=== PATIENT | female | born 1945 | race Caucasian/White ===

== ENCOUNTER 2017-08-27 10:01 | Inpatient (IN) ==
--- NOTE | 2017-08-27 11:15 | Emergency Department Note ---
Disposition Clinical Impression: Lower gastrointestinal hemorrhage Disposition: Admitted As Inpatient Condition: Fair Referrals: Bharat Méndez DO [Primary Care Provider] - Forms: ED Satisfaction Letter GI Bleed HPI - General Chief complaint: ED GI Bleed Stated complaint: Rectal bleeding Time Seen by Provider: 08/27/17 10:05 Source: patient, EMS Mode of arrival: EMS Nursing Notes Reviewed: Yes Vital Signs Reviewed: Yes - History of Present Illness HPI Narrative: Ms. Smallwood is a 71 year old female who presented to ED with a complaint of rectal bleeding. She reports a large amount of bright red blood in the toilet bowl following her BM this morning. She states her eye sight is not great, but her states that it coated the toilet bowl. She recently had a colonoscopy on 08/23/17 which she had 3 polyps removed without complications. She has had 2 bowel movements since the colonoscopy which were a little loose, otherwise normal. She has hemorrhoids, but states she has never had a gross blood before. Denies any symptoms of abdominal pain, diarrhea, fevers, chills. She admits to intermittent consitpation. She takes a daily aspirin but no other blood thinners. Did have dialysis this morning for and had to stop 15 minutes early due to fatigue and lightheadedness. Also states that her vision had gone black but is normal now. She denies LOC. Pt Subjective Complaint: gross bloody stools Onset (ago): hour(s) Number of episodes: 1 Severity: none Improves with: nothing Worsens with: nothing Context: hemorrhoids Associated symptoms: Reports: none, weakness - Related Data Home Medications Medication Instructions Recorded Confirmed Aspirin [Lo-Dose Aspirin EC] 81 mg PO DAILY 08/23/17 08/27/17 Cinacalcet [Sensipar] 30 mg PO DAILY 08/23/17 08/27/17 Lanthanum Carbonate [Fosrenol] 1,000 mg PO TID 08/23/17 08/27/17 Loratadine [Claritin] 10 mg PO DAILY 08/23/17 08/27/17 Vit C/E/Zn/Coppr/Lutein/Zeaxan 1 cap PO DAILY 08/23/17 08/27/17 [Preservision Areds 2 Softgel] Allergies Allergy/AdvReac Type Severity Reaction Status Date / Time allopurinol AdvReac Headache Verified 08/23/17 07:26 clonidine AdvReac Swelling Verified 08/23/17 07:26 of Lip/Tongue/Throat colchicine AdvReac Headache Verified 08/23/17 07:26 Iodinated Contrast- Oral and AdvReac Weakness Verified 08/23/17 07:26 IV Dye levofloxacin [From Levaquin] AdvReac Muscle Pain Verified 08/23/17 07:26 Penicillins AdvReac Itching Verified 08/23/17 07:26 pravastatin AdvReac Muscle Pain Verified 08/23/17 07:26 Warfarin [From Coumadin] AdvReac See Verified 08/23/17 07:26 Comments All systems ED: reviewed and negative except as stated. Past Medical History - Past Medical History Medical history: Reports: cancer, hyperlipidemia, hypertension, renal disease, other Surgical history: Reports: non-contributory Psychiatric history: Reports: no psych history - Social History Smoking Status: Never smoker Smokeless Tobacco Status: No Alcohol use: Reports: none Drug use: Reports: none Physical Exam - General Limitations: no limitations - Head Head exam: atraumatic, normocephalic, normal inspection - Respiratory Respiratory exam: Present: normal lung sounds bilaterally - Cardiovascular Cardiovascular exam: Present: regular rate, normal rhythm, normal heart sounds - Abdominal Exam Abdominal exam: Present: soft, normal bowel sounds. Absent: tenderness, distention, guarding, rebound, rigidity - Rectal Exam Scanning Coordinator present during exam: Yes Rectal exam: Present: normal inspection, normal rectal tone, hemorrhoids Course Course Narrative: Pt had a bowel movement while in emergency department which demonstrated a large amount of blood. H/H and vitals have been stable. - Reevaluation(s) Reevaluation #1: Discussed admission with patient. She is agreeable at this time. Discussed with GI bleed special education math teacher, Dr. Patricio. Also notified aviation safety equipment technician, Dr. Garcia. Time: 14:55 Vital Signs Temperature 0 F L 08/27/17 11:43 Pulse Rate 70 08/27/17 11:43 Respiratory Rate 19 08/27/17 11:43 Blood Pressure 115/93 08/27/17 11:43 O2 Sat by Pulse Oximetry 94 08/27/17 11:43 Temperature 0 F L 08/27/17 11:43 Pulse Rate 75 08/27/17 14:28 Respiratory Rate 17 08/27/17 14:28 Blood Pressure 109/68 08/27/17 14:28 O2 Sat by Pulse Oximetry 97 08/27/17 14:28 Oxygen Delivery Oxygen Delivery Room Air GI Bleed - MDM Narrative Medical decision making narrative: Pt evaluated and demonstrates signs and symptoms of lower GI hemorrhage following colonoscopy last week. 2 episodes of gross bloody bowel movements today. Admission discussed with patient and she is agreeable. Discussed with hospitalist, Dr. Conner and he will accept the patient for admission. order caller endoscopist and Dr. Garcia. H/H stable and Vitals stable. - Differential Diagnosis Likely: Lower gastrointestinal hemorrhage - Lab Data Result diagrams: 08/27/17 13:13 08/27/17 13:13 Lab Results 08/27/17 08/27/17 08/27/17 Range/Units 13:13 13:13 13:13 WBC 10.5 (4.3-11.1) K/mcL RBC 3.65 L (3.82-4.97) M/mcL Hgb 10.9 L (11.5-15.4) g/dL Hct 33.7 L (35.3-44.9) % MCV 92.3 (83.0-100.0) fL MCH 29.9 (28.0-33.3) pg MCHC 32.3 (31.6-35.5) g/dL RDW 13.5 (11.5-14.5) % Plt Count 179 (140-400) K/mcL MPV 10.4 (9.4-12.4) fL Immature Gran % 0.4 (0-4) % Seg Neutrophils % 73.2 % Lymphocytes % 20.8 % Monocytes % 4.3 % Eosinophils % 0.9 % Basophils % 0.4 % Neutrophils # 7.7 (1.6-8.9) K/mcL Lymphocytes # 2.2 (0.6-4.6) K/mcL Monocytes # 0.5 (0.0-1.3) K/mcL Eosinophils # 0.1 (0.0-0.6) K/mcL Basophils # 0.0 (0.0-0.2) K/mcL PT 11.2 (9.4-12.1) Seconds INR 1.0 APTT 28.4 (26.0-36.0) Seconds Sodium 139 (136-145) mEq/L Potassium 3.8 (3.5-5.1) mEq/L Chloride 99 (98-107) mEq/L Carbon Dioxide 27 (23-29) mEq/L BUN 22 (8-23) mg/dL Creatinine 4.47 H (0.60-1.20) mg/dL Est GFR ( Amer) 12 L (> 60) Est GFR (Non-Af Amer) 10 L (> 60) BUN/Creatinine Ratio 5 L (6-26) Glucose 95 (70-105) mg/dL Calculated Osmolality 291 (280-300) Calcium 8.7 (8.6-10.3) mg/dL Troponin I (< 0.04) ng/mL Blood Type Antibody Screen 08/27/17 08/27/17 Range/Units 13:13 13:13 WBC (4.3-11.1) K/mcL RBC (3.82-4.97) M/mcL Hgb (11.5-15.4) g/dL Hct (35.3-44.9) % MCV (83.0-100.0) fL MCH (28.0-33.3) pg MCHC (31.6-35.5) g/dL RDW (11.5-14.5) % Plt Count (140-400) K/mcL MPV (9.4-12.4) fL Immature Gran % (0-4) % Seg Neutrophils % % Lymphocytes % % Monocytes % % Eosinophils % % Basophils % % Neutrophils # (1.6-8.9) K/mcL Lymphocytes # (0.6-4.6) K/mcL Monocytes # (0.0-1.3) K/mcL Eosinophils # (0.0-0.6) K/mcL Basophils # (0.0-0.2) K/mcL PT (9.4-12.1) Seconds INR APTT (26.0-36.0) Seconds Sodium (136-145) mEq/L Potassium (3.5-5.1) mEq/L Chloride (98-107) mEq/L Carbon Dioxide (23-29) mEq/L BUN (8-23) mg/dL Creatinine (0.60-1.20) mg/dL Est GFR ( Amer) (> 60) Est GFR (Non-Af Amer) (> 60) BUN/Creatinine Ratio (6-26) Glucose (70-105) mg/dL Calculated Osmolality (280-300) Calcium (8.6-10.3) mg/dL Troponin I 0.03 (< 0.04) ng/mL Blood Type O POSITIVE Antibody Screen NEGATIVE - EKG Data EKG shows normal: sinus rhythm Rate: normal Rhythm: NSR [place]/QRS: left axis deviation Voltage: decreased voltage throughout When compared to previous EKG there are: no significant changes Attestation Statement - Attestation Attestation: I, Luis Lopez DO, examined this patient [id number] and my medical decision-making was reviewed with Enoc An PGY-1, Resident Physician. I agree with the documented findings, disposition and treatment plan as described except to the extent set forth below. Please see my progress notes for details. 71-year-old female presents to emergency room with acute onset of lower gastrointestinal bleed. Patient came home from dialysis this morning and felt pressure in her lower abdomen. Shortly afterwards she had a large bowel movement. Bowel movement consisted of blood and dark colored mucus. Patient did not have any other symptoms prior to that except for some mild hypotension. She does typically get hypotensive after her dialysis. Patient denies any fevers or chills nausea vomiting chest pain, shortness of breath. Patient presented by EMS in no apparent distress. Hemoccult testing will be completed on a CBC chemistry screening labs. Patient does not appear to be a specific distress. Simple fluid bolus will be given with IV accesses obtained. Patient is a right chest wall port will be axis within the glottis but not going off typically. The patient does not have the ability to have labs drawn we will potentially femoral sticker for evaluation. Patient is otherwise medically stable describing no other complaints or symptoms. See detailed documentation of physical exam, medical intervention, medical decision-making and disposition and the resident physician's note 1500 Patient found to have gross blood in her stool this time. Hemoglobin appears to be stable. Secondary to the GI bleed as well as the dialysis history patient will be admitted for symptomatic control. Vital signs otherwise unremarkable and stable at this point. Patient will be admitted for definitive management. Gastroenterology as well as the aviation safety equipment technician were contacted.
[2017-08-27 13:23] LABS: Basophils % 0.4 %; Eosinophils # 0.1 K/mcL (0.0-0.6); Eosinophils % 0.9 %; Hematocrit 33.7 % (35.3-44.9); Hemoglobin 10.9 g/dL (11.5-15.4); Immature Granulocytes % 0.4 % (0-4); Lymphocytes # 2.2 K/mcL (0.6-4.6); Lymphocytes % 20.8 %; Mean Corpuscular HGB Conc 32.3 g/dL (31.6-35.5); Mean Corpuscular Hemoglobin 29.9 pg (28.0-33.3); Mean Corpuscular Volume 92.3 fL (83.0-100.0); Mean Platelet Volume 10.4 fL (9.4-12.4); Monocytes # 0.5 K/mcL (0.0-1.3); Monocytes % 4.3 %; Neutrophils # 7.7 K/mcL (1.6-8.9); Platelet Count 179 K/mcL (140-400); Red Blood Count 3.65 M/mcL (3.82-4.97); Red Cell Distribution Width 13.5 % (11.5-14.5); Segmented Neutrophils % 73.2 %
[2017-08-27 13:31] LABS: Prothrombin Time 11.2 Seconds (9.4-12.1)
[2017-08-27 13:33] LABS: Activated Partial Thrombo Time 28.4 Seconds (26.0-36.0)
[2017-08-27 13:43] LABS: Calcium 8.7 mg/dL (8.6-10.3); Potassium 3.8 mEq/L (3.5-5.1)
[2017-08-27] MEDS ORDERED: Pantoprazole 80 MG in Water for inj. (sterile) 10 ML IVP ONE (14:50)
[2017-08-27] MEDS ORDERED: WATER FOR INJ IVP ONE (15:15)
[2017-08-27] MEDS ORDERED: PANTOPRAZOLE IVP ONE (15:15)
--- NOTE | 2017-08-27 15:48 | General Surgery Consult Note ---
<ChristopherjessyLiz cruz H - Last Filed: 08/27/17 15:46> Date of Encounter: 08/27/17 Time of Encounter: 15:47 Assessment and Plan (2) HLD (hyperlipidemia) Current Visit: Yes Status: Acute Patient with 1 day history of BRBPR with recent colonic polypectomy 5 days ago. Patient with non-thrombosed external rectal hemorrhoids. -colonscopy on 08/23/2017- three 6-15 mm polyps in sigmoid and ascending colon removed with hot snare. Diverticulosis in the sigmoid and descending colon. -Patients H&P c/w with polypectomy vs external hemorrhoids. During PE, no active bleeding visualized, only dried blood. -Hemoglobin 10.9, which is similar to Hgb during previous hospital stays. -Will follow serial hemoglobins. -Serial abdominal exams. -Agree with PPI therapy. -Will continue to follow along with medicine/primary team. History of Present Illness Consult date: 08/27/17 Reason for consult: other (GI bleed) Requesting physician: Navarro An History of present illness: Ms. Smallwood is a 71 yo female with PMHx cancer, HLD, HTN, chronic kidney disease on dialysis who presents to [facility] on 08/27/2017 with complaints of rectal bleeding. Per patient, she recently underwent colonoscopy and polypectomy on 08-23-2016 at which time she had 3 6 to 15 mm polyps in the sigmoid and ascending colon removed with hot snare. Diverticulosis was also noted in the sigmoid and descending colon. Patient states she has not been having any rectal bleeding since the procedure or any abdominal discomfort. Today, she noticed bright red blood while wiping. She states there was stool mixed in with her bowel movement. She denies any passage of clots, however, she quantifies the amount of bloody BM as more than a smear and covering the toilet paper. She reports mild tenderness in the umbilical region on her abdomen. She also reports lightheadness when going from sitting to standing. She denies chest pain , shortness of breath, diaphoresis, dysuria, or hematuria. She has had a hysterectomy and denies vaginal discharge or bleeding. She denies diarrhea, melena, or hematemesis. She denies nausea or vomitting. She denies fever or generalized weakness. Past Med Surg Social Fam HX - Past Medical History Attestation: Yes The following information was validated with the patient. Source: patient, old records reviewed Medical history: cancer, hyperlipidemia, hypertension, renal disease, other ( rheumatoid arthritis) Psychiatric history: no psych history - Past Surgical History Surgical History: non-contributory - Social History Smoking Status: Never smoker Smokeless Tobacco Status: No Alcohol use: none Drug use: none Medications and Allergies Aspirin [Lo-Dose Aspirin EC] 81 mg PO DAILY 08/23/17 [History] Cinacalcet [Sensipar] 30 mg PO DAILY 08/23/17 [History] Lanthanum Carbonate [Fosrenol] 1,000 mg PO TID 08/23/17 [History] Loratadine [Claritin] 10 mg PO DAILY 08/23/17 [History] Vit C/E/Zn/Coppr/Lutein/Zeaxan [Preservision Areds 2 Softgel] 1 cap PO DAILY 03/02 [History] 3 Allergy/AdvReac Type Severity Reaction Status Date / Time allopurinol AdvReac Headache Verified 08/23/17 07:26 clonidine AdvReac Swelling Verified 08/23/17 07:26 of Lip/Tongue/Throat colchicine AdvReac Headache Verified 08/23/17 07:26 Iodinated Contrast- Oral and AdvReac Weakness Verified 08/23/17 07:26 IV Dye levofloxacin [From Levaquin] AdvReac Muscle Pain Verified 08/23/17 07:26 Penicillins AdvReac Itching Verified 08/23/17 07:26 pravastatin AdvReac Muscle Pain Verified 08/23/17 07:26 Warfarin [From Coumadin] AdvReac See Verified 08/23/17 07:26 Comments Review of Systems All systems PM: A 10-system review of systems was performed and is negative for pertinent findings except as documented above in the HPI. - Constitutional no daytime sleepiness, no fever(s), no headache(s), no lethargy - Cardiovascular lightheadedness, no chest pain, no dyspnea on exertion, no edema, no irregular heart rhythm, no pedal edema - Respiratory no cough, no dyspnea, no wheezing, no excessive phlegm production - Gastrointestinal abdominal pain, hematochezia, no coffee ground emesis, no constipation, no cramping, no heartburn, no hematemesis, no loose stools, no melena, no vomiting - Genitourinary Menstruation: post hysterectomy - Musculoskeletal deformity (bilateral lower extremity deformities of both feet. c/w RA) - Neurological no numbness, no paresthesias, no syncope General Surgery Exam Initial Vital Signs Temp Pulse Resp BP Pulse Ox 0 F L 70 19 115/93 94 08/27/17 11:43 08/27/17 11:43 08/27/17 11:43 08/27/17 11:43 08/27/17 11:43 - General physical appearance well developed, well nourished, no distress, no pain, chronically ill - Eyes PERRL, normal ocular movement - ENT dry mucosa, atraumatic, normocephalic - Respiratory normal expansion, normal respiratory effort, clear to percussion, clear to auscultation - Cardiovascular Cardiovascular exam: Present: RRR, no murmurs/rubs/gallops - Abdomen Abdomen general surgery: Present: bowel sounds present, soft, non tender (Two well healed scars present. One midline extending between umbilicus and pubis. Other scar located over the RUQ in a crescent shape. ) Hernia: Present: none - Genitourinary Present: normal external genitalia - Rectum Rectum: Present: no tenderness, no masses, no bleeding (dried blood visible), other (hemorrhoids present on the rectum, not thrombosed.) Hemorrhoids: Present: External. Absent: Thrombosed - Integumentary Integumentary general surgery: Present: warm and dry. Absent: diaphoresis - Neurologic Present: normal coordination, normal sensation - Psychiatric Psychiatric general surgery: Present: A&Ox3, appropriate, speech is normal, memory intact Exam Initial Vital Signs Temp Pulse Resp BP Pulse Ox 0 F L 70 19 115/93 94 08/27/17 11:43 08/27/17 11:43 08/27/17 11:43 08/27/17 11:43 08/27/17 11:43 Results - Labs 08/27/17 13:13 08/27/17 13:13 Abnormal lab results RBC 3.65 M/mcL (3.82-4.97) L 08/27/17 13:13 Hgb 10.9 g/dL (11.5-15.4) L 08/27/17 13:13 Hct 33.7 % (35.3-44.9) L 08/27/17 13:13 Creatinine 4.47 mg/dL (0.60-1.20) H 08/27/17 13:13 Est GFR ( Amer) 12 (> 60) L 08/27/17 13:13 Est GFR (Non-Af Amer) 10 (> 60) L 08/27/17 13:13 BUN/Creatinine Ratio 5 (6-26) L 08/27/17 13:13 Diabetes panel 08/27/17 Range/Units 13:13 Sodium 139 (136-145) mEq/L Potassium 3.8 (3.5-5.1) mEq/L Chloride 99 (98-107) mEq/L Carbon Dioxide 27 (23-29) mEq/L BUN 22 (8-23) mg/dL Creatinine 4.47 H (0.60-1.20) mg/dL Glucose 95 (70-105) mg/dL Calcium 8.7 (8.6-10.3) mg/dL Calcium panel 08/27/17 Range/Units 13:13 Calcium 8.7 (8.6-10.3) mg/dL Pituitary panel 08/27/17 Range/Units 13:13 Sodium 139 (136-145) mEq/L Potassium 3.8 (3.5-5.1) mEq/L Chloride 99 (98-107) mEq/L Carbon Dioxide 27 (23-29) mEq/L BUN 22 (8-23) mg/dL Creatinine 4.47 H (0.60-1.20) mg/dL Glucose 95 (70-105) mg/dL Calcium 8.7 (8.6-10.3) mg/dL Adrenal panel 08/27/17 Range/Units 13:13 Sodium 139 (136-145) mEq/L Potassium 3.8 (3.5-5.1) mEq/L Chloride 99 (98-107) mEq/L Carbon Dioxide 27 (23-29) mEq/L BUN 22 (8-23) mg/dL Creatinine 4.47 H (0.60-1.20) mg/dL Glucose 95 (70-105) mg/dL Calcium 8.7 (8.6-10.3) mg/dL All other labs normal. Consult Discharge Plan - Plan Referrals: Bharat Méndez, [Primary Care Provider] - <Ajay Patricio - Last Filed: 08/28/17 14:27> Date of Encounter: 08/27/17 Review of Systems All systems PM: A 10-system review of systems was performed and is negative for pertinent findings except as documented above in the HPI. General Surgery Exam Initial Vital Signs Temp Pulse Resp BP Pulse Ox 0 F L 70 19 115/93 94 08/27/17 11:43 08/27/17 11:43 08/27/17 11:43 08/27/17 11:43 08/27/17 11:43 Exam Initial Vital Signs Temp Pulse Resp BP Pulse Ox 0 F L 70 19 115/93 94 08/27/17 11:43 08/27/17 11:43 08/27/17 11:43 08/27/17 11:43 08/27/17 11:43 Results - Labs 08/28/17 10:56 08/28/17 05:17 Abnormal lab results RBC 3.14 M/mcL (3.82-4.97) L 08/28/17 07:10 Hgb 10.4 g/dL (11.5-15.4) L 08/28/17 10:56 Hct 31.9 % (35.3-44.9) L 08/28/17 10:56 BUN 33 mg/dL (8-23) H 08/28/17 05:17 Creatinine 5.90 mg/dL (0.60-1.20) H 08/28/17 05:17 Est GFR ( Amer) 9 (> 60) L 08/28/17 05:17 Est GFR (Non-Af Amer) 7 (> 60) L 08/28/17 05:17 Calcium 8.3 mg/dL (8.6-10.3) L 08/28/17 05:17 Diabetes panel 08/28/17 Range/Units 05:17 Sodium 140 (136-145) mEq/L Potassium 4.1 (3.5-5.1) mEq/L Chloride 102 (98-107) mEq/L Carbon Dioxide 24 (23-29) mEq/L BUN 33 H (8-23) mg/dL Creatinine 5.90 H (0.60-1.20) mg/dL Glucose 79 (70-105) mg/dL Calcium 8.3 L (8.6-10.3) mg/dL Calcium panel 08/28/17 Range/Units 05:17 Calcium 8.3 L (8.6-10.3) mg/dL Pituitary panel 08/28/17 Range/Units 05:17 Sodium 140 (136-145) mEq/L Potassium 4.1 (3.5-5.1) mEq/L Chloride 102 (98-107) mEq/L Carbon Dioxide 24 (23-29) mEq/L BUN 33 H (8-23) mg/dL Creatinine 5.90 H (0.60-1.20) mg/dL Glucose 79 (70-105) mg/dL Calcium 8.3 L (8.6-10.3) mg/dL Adrenal panel 08/28/17 Range/Units 05:17 Sodium 140 (136-145) mEq/L Potassium 4.1 (3.5-5.1) mEq/L Chloride 102 (98-107) mEq/L Carbon Dioxide 24 (23-29) mEq/L BUN 33 H (8-23) mg/dL Creatinine 5.90 H (0.60-1.20) mg/dL Glucose 79 (70-105) mg/dL Calcium 8.3 L (8.6-10.3) mg/dL All other labs normal. - Attending Attestation I examined this patient and my medical decision-making was reviewed with the Resident Physician. I agree with the documented findings, disposition and treatment plan as described except to the extent set forth below. The patient is seen and evaluated. She underwent polypectomy. About postoperative day 4 or 5 she underwent heparinization for dialysis and had lower GI bleeding. This roughly coincides with the time when we would expect the coagulation tissue to slough off. Her hemoglobin and hematocrit are stable. I do not think that she needs repeat endoscopy at this point and we should just watch her for further bleeding. Ajay Patricio MD FACS
[2017-08-27] MEDS ORDERED: Naloxone 0.4 MG/ML INJ IVP PRN (16:24)
--- NOTE | 2017-08-27 16:31 | Internal Med History&Physical ---
Date of Encounter: 08/27/17 Time of Encounter: 16:29 Assessment and Plan (1) Lower gastrointestinal hemorrhage Current visit: Yes Status: Acute ASSESSMENT: - GI bleeding of unknown etiology PLAN: - NPO - H/H now and q 6 hr- transfuse with critical decrease in Hgb - Type and screen - Protonix IV gtt - GI consult- ED physician spoke with Dr. Patricio - O2 to keep SpO2 > 92% - CBCD, BMP, INR/PTT in AM - EPCD's for DVT prophylaxis (2) ESRD (end stage renal disease) on dialysis Current visit: Yes Status: Acute Continue renal medications -consult to Nephrology- ED physician reports that they have spoken with Dr. Garcia who has agreed to see the patient (3) HTN (hypertension) Current visit: Yes Status: Acute Hemodynamically stable Qualifiers: Hypertension type: unspecified Qualified Code(s): I10 - Essential (primary ) hypertension (4) DVT prophylaxis Current visit: Yes Status: Acute EPCD's Internal Medicine - H&P: HPI Chief complaint: Blood per rectum with BM Admitted From: Home Plans for Post Hospital Care: Home History of present illness: Ms. Smallwood is a 71 year old female with a PMH of cancer, hyperlipidemia, hypertension, and ESRD who presents to [facility] today with c/o bright red blood per rectum. She denies any prior h/o GI bleeding and is not taking any blood thinners. She recently underwent colonoscopy and polypectomy on 2016 at which time she had 3 6 to 15 mm polyps in the sigmoid and ascending colon removed with hot snare. She denies any bleeding following the colonoscopy and reports that it started today. She is describing brightred blood mixed with stool and also present while wiping. Additionally she is reporting pain in her lower abdomen as well as some lightheadedness with activity. She denies any fevers, chills, chest pain, shortness of breath, hematemesis, melena or N/V/D. Past Med Surg Social Fam HX - Past Medical History Medical history: cancer, hyperlipidemia, hypertension, renal disease, other ( rheumatoid arthritis) Psychiatric history: no psych history - Past Surgical History Surgical History: non-contributory - Social History Smoking Status: Never smoker Smokeless Tobacco Status: No Alcohol use: none Drug use: none - Additional Family History Additional family history: noncontributory Internal Medicine - H&P: Meds Aspirin [Lo-Dose Aspirin EC] 81 mg PO DAILY 08/23/17 [History] Cinacalcet [Sensipar] 30 mg PO DAILY 08/23/17 [History] Lanthanum Carbonate [Fosrenol] 1,000 mg PO TID 08/23/17 [History] Loratadine [Claritin] 10 mg PO DAILY 08/23/17 [History] Vit C/E/Zn/Coppr/Lutein/Zeaxan [Preservision Areds 2 Softgel] 1 cap PO DAILY 03/02 [History] 3 Allergy/AdvReac Type Severity Reaction Status Date / Time allopurinol AdvReac Headache Verified 08/23/17 07:26 clonidine AdvReac Swelling Verified 08/23/17 07:26 of Lip/Tongue/Throat colchicine AdvReac Headache Verified 08/23/17 07:26 Iodinated Contrast- Oral and AdvReac Weakness Verified 08/23/17 07:26 IV Dye levofloxacin [From Levaquin] AdvReac Muscle Pain Verified 08/23/17 07:26 Penicillins AdvReac Itching Verified 08/23/17 07:26 pravastatin AdvReac Muscle Pain Verified 08/23/17 07:26 Warfarin [From Coumadin] AdvReac See Verified 08/23/17 07:26 Comments All Systems PM: A 10-system review of systems was performed and is negative for pertinent findings except as documented above in the HPI. - Constitutional Constitutional: no chills, no fever(s), no night sweats - EENT Eyes: no change in vision, no discharge, no pain, no photophobia Ears: no ear discharge, no ear pain, no tinnitus Nose, mouth and throat: no dysphagia, no nasal discharge, no neck pain, no sore throat - Cardiovascular Cardiovascular ROS IM: no chest pain, no diaphoresis, no dyspnea, no lightheadedness, no palpitations, no syncope - Respiratory Respiratory: no cough, no dyspnea, no wheezing, no excessive phlegm production - Gastrointestinal Gastrointestinal: as per HPI, abdominal pain, hematochezia, no constipation, no cramping, no diarrhea, no hematemesis, no melena - Genitourinary Genitourinary: no change in urinary stream, no dysuria, no flank pain, no hematuria - Musculoskeletal Musculoskeletal ROS IM: no numbness, no tingling - Integumentary Integumentary IM: no rash, no unusual bruising - Neurological Neurological ROS: no confusion, no convulsions, no focal weakness, no numbness, no tingling, no tremor(s) - Constitutional Vitals: Temp Pulse Resp BP Pulse Ox 0 F L 75 17 109/68 97 08/27/17 11:43 08/27/17 14:28 08/27/17 14:28 08/27/17 14:28 08/27/17 14:28 General appearance: Present: cooperative, A&O X 3, no acute distress, answers questions appropriately - Head Head exam: Present: atraumatic, normocephalic - Eye Eye exam: Present: PERRL, conjuntiva pink, sclera anicteric Pupils: Present: PERRL - Neck Neck exam general surgery: Present: supple, trachea midline. Absent: lymphadenopathy - Respiratory Respiratory exam: Present: CTAB. Absent: accessory muscle use, rales, rhonchi, wheezes - Cardiovascular Cardiovascular exam: Present: RRR, +S1, +S2. Absent: diastolic murmur, gallop, rubs, systolic murmur - GI/Abdominal GI/Abdominal exam: Present: normal bowel sounds, soft, tenderness (RLQ, LLQ). Absent: distended, firm, guarding, mass, rebound - Extremities Exam Extremities exam: Present: warm, radial pulses palpable and symmetrical. Absent : calf tenderness, cyanotic, pedal edema - Neurological Exam Neurological exam: Present: alert, oriented X3. Absent: facial droop, speech deficit - Skin Skin exam: Present: dry, intact Internal Med - H&P Results - Labs CBC & Chem 7: 08/27/17 13:13 08/27/17 13:13 - EKG Data -: EKG Interpreted by Myself EKG shows normal: sinus rhythm Rate: normal - Impressions Impressions Abdomen/Pelvis CT 08/27/17 10:18 IMPRESSION: 1. No acute intra-abdominal or intrapelvic process. 2. Findings compatible with polycystic kidney disease. No acute abnormality of the kidneys is identified. 3. Colonic diverticulosis without evidence of diverticulitis. 4. Incidental findings include chronic scarring/atelectasis at the lung bases, atherosclerotic vascular calcifications, previous cholecystectomy and previous hysterectomy. D/ / Mihir Carter MD / Mihir Carter MD Interpreting Provider: Mihir Carter MD
[2017-08-27 16:58] LABS: Hematocrit 34.3 % (35.3-44.9); Hemoglobin 11.1 g/dL (11.5-15.4)
[2017-08-27 19:22] LABS: Hematocrit 32.2 % (35.3-44.9); Hemoglobin 10.3 g/dL (11.5-15.4)
[2017-08-27 20:16] LABS: Hepatitis B Surface Antigen Nonreactive (Nonreactive)
[2017-08-27] MEDS: Pantoprazole 40 MG in 0.9 % Sodium Chloride Mini Bag 100 ML IVC SCH (21:19)
[2017-08-28] MEDS: Pantoprazole 40 MG in 0.9 % Sodium Chloride Mini Bag 100 ML IVC SCH ×2 (00:13→04:56)
[2017-08-28 05:36] LABS: Prothrombin Time 11.2 Seconds (9.4-12.1)
[2017-08-28 05:38] LABS: Activated Partial Thrombo Time 28.1 Seconds (26.0-36.0)
[2017-08-28 05:52] LABS: Calcium 8.3 mg/dL (8.6-10.3); Potassium 4.1 mEq/L (3.5-5.1)
[2017-08-28 08:01] LABS: Basophils % 0.7 %; Eosinophils # 0.2 K/mcL (0.0-0.6); Eosinophils % 2.8 %; Hematocrit 29.4 % (35.3-44.9); Hemoglobin 9.5 g/dL (11.5-15.4); Immature Granulocytes % 0.7 % (0-4); Immature Platelets 3.2 % (1.1-6.1); Lymphocytes # 1.8 K/mcL (0.6-4.6); Lymphocytes % 30.1 %; Mean Corpuscular HGB Conc 32.3 g/dL (31.6-35.5); Mean Corpuscular Hemoglobin 30.3 pg (28.0-33.3); Mean Corpuscular Volume 93.6 fL (83.0-100.0); Mean Platelet Volume 10.4 fL (9.4-12.4); Monocytes # 0.4 K/mcL (0.0-1.3); Monocytes % 6.3 %; Neutrophils # 3.6 K/mcL (1.6-8.9); Platelet Count 155 K/mcL (140-400); Red Blood Count 3.14 M/mcL (3.82-4.97); Red Cell Distribution Width 13.9 % (11.5-14.5); Segmented Neutrophils % 59.4 %
--- NOTE | 2017-08-28 08:39 | General Surgery Progress Note ---
<Liz Gar - Last Filed: 08/28/17 09:53> Date of Encounter: 08/28/17 Time of Encounter: 08:37 - Assessment and Plan (1) Rectal bleeding Current Visit: Yes Status: Acute Patient with 1 episode of BRBPR with recent colonic polypectomy 5 days ago. Patient with non-thrombosed external rectal hemorrhoids. -colonscopy on 08/23/2017- three 6-15 mm polyps in sigmoid and ascending colon removed with hot snare. Diverticulosis in the sigmoid and descending colon. -Patients H&P c/w with polypectomy vs external hemorrhoids. During PE, no active bleeding visualized, only dried blood. Suspect heparin infused during dialysis in conjunction with coagulation sluff 4-5 days after hot snare polypectomy lead to a single, mild, transient episode of bleeding. -Hemoglobin stable (10.9, 11.1, 10.3) -Patient has had no further rectal bleeding. -Stable for discharge from the hospital from a surgical standpoint. Thank you for involving us in the care of this patient. Surgery to sign off. Subjective Patient reports: no new complaints, feels better, voiding w/o difficulty ( Rectal Bleeding has stopped since admission to hospital. ), afebrile Objective Vital Signs - Last 8 Hours Temp Pulse Resp BP Pulse Ox 08/28/17 08:27 120/70 08/28/17 07:24 97.9 F 62 16 99/53 98 08/28/17 03:38 97.6 F 64 16 90/60 96 Intake and Output 08/27/17 08/28/17 08/28/17 23:59 07:59 15:59 Intake Total 0 / 0 100 / 100 Balance 0 / 0 100 / 100 Intake: IV Fluids 100 / 100 Protonix 40 MG In 0.9 % Sodium 100 / 100 Chloride (Mini-Bag +) 100 ML @ 20 mls/hr IVC .Q5H [facility] Rx#: [id number] Oral 0 / 0 Other: Weight 81.4 kg Patient Weight 08/28/17 23:59 Weight 81.4 kg - General physical appearance well developed, well nourished, no distress, chronically ill - ENT normal nares, normal mucosa - Neck Neck exam: trachea midline, no venous distension - Respiratory normal respiratory effort, clear to percussion, clear to auscultation - Cardiovascular Cardiovascular exam: Present: RRR, no murmurs/rubs/gallops - Abdomen Abdomen: Present: bowel sounds present, soft, non tender - Integumentary no rash - Neurologic normal coordination, normal sensation - Psychiatric oriented to time, oriented to person, oriented to place, speech is normal, memory intact - Labs 08/28/17 07:10 08/28/17 05:17 Diabetes panel 08/28/17 Range/Units 05:17 Sodium 140 (136-145) mEq/L Potassium 4.1 (3.5-5.1) mEq/L Chloride 102 (98-107) mEq/L Carbon Dioxide 24 (23-29) mEq/L BUN 33 H (8-23) mg/dL Creatinine 5.90 H (0.60-1.20) mg/dL Glucose 79 (70-105) mg/dL Calcium 8.3 L (8.6-10.3) mg/dL Calcium panel 08/28/17 Range/Units 05:17 Calcium 8.3 L (8.6-10.3) mg/dL Pituitary panel 08/28/17 Range/Units 05:17 Sodium 140 (136-145) mEq/L Potassium 4.1 (3.5-5.1) mEq/L Chloride 102 (98-107) mEq/L Carbon Dioxide 24 (23-29) mEq/L BUN 33 H (8-23) mg/dL Creatinine 5.90 H (0.60-1.20) mg/dL Glucose 79 (70-105) mg/dL Calcium 8.3 L (8.6-10.3) mg/dL Adrenal panel 08/28/17 Range/Units 05:17 Sodium 140 (136-145) mEq/L Potassium 4.1 (3.5-5.1) mEq/L Chloride 102 (98-107) mEq/L Carbon Dioxide 24 (23-29) mEq/L BUN 33 H (8-23) mg/dL Creatinine 5.90 H (0.60-1.20) mg/dL Glucose 79 (70-105) mg/dL Calcium 8.3 L (8.6-10.3) mg/dL - VTE Documentation of Mechanical Device: Intermittent pneumatic compression device Consult Discharge Plan - Plan Referrals: Bharat Méndez, [Primary Care Provider] - <Sintia,Ajay T - Last Filed: 08/28/17 14:32> Date of Encounter: 08/28/17 Objective Vital Signs - Last 8 Hours Temp Pulse Resp BP Pulse Ox 08/28/17 10:52 93/63 08/28/17 10:15 98.2 F 75 16 84/58 97 08/28/17 08:27 120/70 08/28/17 07:24 97.9 F 62 16 99/53 98 Intake and Output 08/27/17 08/28/17 08/28/17 23:59 07:59 15:59 Intake Total 0 / 0 100 / 100 Balance 0 / 0 100 / 100 Intake: IV Fluids 100 / 100 Protonix 40 MG In 0.9 % Sodium 100 / 100 Chloride (Mini-Bag +) 100 ML @ 20 mls/hr IVC .Q5H [facility] Rx#: [id number] Oral 0 / 0 Other: Weight 81.4 kg Patient Weight 08/28/17 23:59 Weight 81.4 kg - Labs 08/28/17 10:56 08/28/17 05:17 Diabetes panel 08/28/17 Range/Units 05:17 Sodium 140 (136-145) mEq/L Potassium 4.1 (3.5-5.1) mEq/L Chloride 102 (98-107) mEq/L Carbon Dioxide 24 (23-29) mEq/L BUN 33 H (8-23) mg/dL Creatinine 5.90 H (0.60-1.20) mg/dL Glucose 79 (70-105) mg/dL Calcium 8.3 L (8.6-10.3) mg/dL Calcium panel 08/28/17 Range/Units 05:17 Calcium 8.3 L (8.6-10.3) mg/dL Pituitary panel 08/28/17 Range/Units 05:17 Sodium 140 (136-145) mEq/L Potassium 4.1 (3.5-5.1) mEq/L Chloride 102 (98-107) mEq/L Carbon Dioxide 24 (23-29) mEq/L BUN 33 H (8-23) mg/dL Creatinine 5.90 H (0.60-1.20) mg/dL Glucose 79 (70-105) mg/dL Calcium 8.3 L (8.6-10.3) mg/dL Adrenal panel 08/28/17 Range/Units 05:17 Sodium 140 (136-145) mEq/L Potassium 4.1 (3.5-5.1) mEq/L Chloride 102 (98-107) mEq/L Carbon Dioxide 24 (23-29) mEq/L BUN 33 H (8-23) mg/dL Creatinine 5.90 H (0.60-1.20) mg/dL Glucose 79 (70-105) mg/dL Calcium 8.3 L (8.6-10.3) mg/dL - Attending Attestation I examined this patient and my medical decision-making was reviewed with the Resident Physician. I agree with the documented findings, disposition and treatment plan as described except to the extent set forth below. The patient is seen and evaluated in the morning with the resident. The findings are discussed with the clinical nurse practitioner. The patient's had no visible bleeding. Her hemoglobin and hematocrit are higher than yesterday with no transfusion. At this point she does not appear to have any active bleeding. The bleeding episode appears to be related to anticoagulation during dialysis. I do not believe that any further action is required. The patient did have pathology returned on the polyps. 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 I would recommend repeat colonoscopy in 3 years. Ajay Patricio MD FACS
[2017-08-28] MEDS ORDERED: (Vit C/E/Zn/Coppr/Lutein/Zeaxan [Preservision Areds 2 Softgel]) PO SCH (09:00)
[2017-08-28] MEDS ORDERED: Loratadine 10 MG TABLET PO SCH (09:00)
--- NOTE | 2017-08-28 09:10 | Electrocardiograph Report ---
[facility] Test Date: 2017-08-27 Pat Name: Sybil Smallwood Department: 102 Room: 2A71 Gender: F Data Analyst Etl Developer: : 1945 Requested By: Navarro An Order Number: [id number] Reading MD: Wilver Bennett MD Measurements Intervals [place] Rate: 72 P: 93 FL: 136 QRS: -26 QRSD: 105 T: 65 QT: 418 QTc: 442 Interpretive Statements SINUS RHYTHM BORDERLINE LEFT AXIS DEVIATION [QRS AXIS < -20] LOW QRS VOLTAGE IN PRECORDIAL LEADS [QRS DEFLECTION < 1.0 mV IN CHEST LEADS] NONSPECIFIC T-WAVE ABNORMALITY Electronically Signed On 08-28-2017 9:08:34 EST by Wilver Bennett MD
--- NOTE | 2017-08-28 09:29 | Nephrology Consult Note ---
Date of Encounter: 08/28/17 Time of Encounter: 08:40 Assessment and Plan (1) ESRD (end stage renal disease) on dialysis Current Visit: Yes Status: Acute Hgb stable. ESRD-No need for HD. keep on MWF schedle. History of Present Illness - Reason for Consult end stage renal disease - History of Present Illness Ms. Smallwood is a 71 year old female with ESRD who dialyzes at [place] on MWF. Last dialysis yesterday, coming of treatment 15 minutes early due to not feeling well. Other PMH-cancer, hyperlipidemia, hypertension, renal disease, other (rheumatoid arthritis), Rosemary-Danlos Syndrome. Ms. Smallwood is S/P colonoscopy with polypectomy x three on Aug 23. She was admitted for rectal bleeding, initial Hgb at patient baseline 10.9, today 9.5. Evaluated by Gen Surgery. This morning she denies further rectal bleeding, is feeling much better and would like to go home Past Med Surg Social Fam HX - Past Medical History Medical history: cancer, hyperlipidemia, hypertension, renal disease, other Psychiatric history: no psych history - Past Surgical History Surgical History: non-contributory - Social History Smoking Status: Never smoker Smokeless Tobacco Status: No Alcohol use: none Drug use: none Medications and Allergies Aspirin [Lo-Dose Aspirin EC] 81 mg PO DAILY 08/23/17 [History] Cinacalcet [Sensipar] 30 mg PO DAILY 08/23/17 [History] Lanthanum Carbonate [Fosrenol] 1,000 mg PO TID 08/23/17 [History] Loratadine [Claritin] 10 mg PO DAILY 08/23/17 [History] Vit C/E/Zn/Coppr/Lutein/Zeaxan [Preservision Areds 2 Softgel] 1 cap PO DAILY 03/02 [History] 3 Allergy/AdvReac Type Severity Reaction Status Date / Time allopurinol AdvReac Headache Verified 08/23/17 07:26 clonidine AdvReac Swelling Verified 08/23/17 07:26 of Lip/Tongue/Throat colchicine AdvReac Headache Verified 08/23/17 07:26 Iodinated Contrast- Oral and AdvReac Weakness Verified 08/23/17 07:26 IV Dye levofloxacin [From Levaquin] AdvReac Muscle Pain Verified 08/23/17 07:26 Penicillins AdvReac Itching Verified 08/23/17 07:26 pravastatin AdvReac Muscle Pain Verified 08/23/17 07:26 Warfarin [From Coumadin] AdvReac See Verified 08/23/17 07:26 Comments Review of Systems All Systems: reviewed and no additional remarkable complaints except as stated Exam - Vital Signs Vital signs: Initial Vital Signs Temp Pulse Resp BP Pulse Ox 0 F L 70 19 115/93 94 08/27/17 11:43 08/27/17 11:43 08/27/17 11:43 08/27/17 11:43 08/27/17 11:43 Vital Signs - Last 8 Hours Temp Pulse Resp BP Pulse Ox 08/28/17 08:27 120/70 08/28/17 07:24 97.9 F 62 16 99/53 98 08/28/17 03:38 97.6 F 64 16 90/60 96 Intake and Output 08/27/17 08/28/17 08/28/17 23:59 07:59 15:59 Intake Total 0 / 0 100 / 100 Balance 0 / 0 100 / 100 Intake: IV Fluids 100 / 100 Protonix 40 MG In 0.9 % Sodium 100 / 100 Chloride (Mini-Bag +) 100 ML @ 20 mls/hr IVC .Q5H [facility] Rx#: [id number] Oral 0 / 0 Other: Weight 81.4 kg Patient Weight 08/28/17 23:59 Weight 81.4 kg - General Appearance General appearance: well-developed, well-nourished, appears started age EENT: mucous membranes moist Neck: no JVD Respiratory: clear Cardiology: no edema, regular rate, regular rhythm Gastrointestinal: hypoactive bowel sounds, no tenderness, no guarding Integumentary: warm and dry Neurologic: alert and oriented x3 Results - Lab Results 08/28/17 07:10 08/28/17 05:17 Most recent lab results Calcium 8.3 mg/dL (8.6-10.3) L 08/28/17 05:17 Consult Discharge Plan - Plan Referrals: Bharat Méndez DO [Primary Care Provider] -
[2017-08-28 10:52] VITALS: BP 93/63
[2017-08-28 11:16] LABS: Hematocrit 31.9 % (35.3-44.9); Hemoglobin 10.4 g/dL (11.5-15.4)
--- NOTE | 2017-08-28 14:29 | Discharge Summary ---
Date of Encounter: 08/28/17 Time of Encounter: 11:00 - Discharge Diagnosis (1) Rectal bleeding Priority: Primary Status: Acute (2) ESRD (end stage renal disease) on dialysis Priority: Secondary Status: Acute - Discharge Medications Home Medications: Aspirin [Lo-Dose Aspirin EC] 81 mg PO DAILY 08/23/17 [History] Cinacalcet [Sensipar] 30 mg PO DAILY 08/23/17 [History] Lanthanum Carbonate [Fosrenol] 1,000 mg PO TID 08/23/17 [History] Loratadine [Claritin] 10 mg PO DAILY 08/23/17 [History] Vit C/E/Zn/Coppr/Lutein/Zeaxan [Preservision Areds 2 Softgel] 1 cap PO DAILY 03/02 [History] Allergies/Adverse Reactions: 3 Allergy/AdvReac Type Severity Reaction Status Date / Time allopurinol AdvReac Headache Verified 08/23/17 07:26 clonidine AdvReac Swelling Verified 08/23/17 07:26 of Lip/Tongue/Throat colchicine AdvReac Headache Verified 08/23/17 07:26 Iodinated Contrast- Oral and AdvReac Weakness Verified 08/23/17 07:26 IV Dye levofloxacin [From Levaquin] AdvReac Muscle Pain Verified 08/23/17 07:26 Penicillins AdvReac Itching Verified 08/23/17 07:26 pravastatin AdvReac Muscle Pain Verified 08/23/17 07:26 Warfarin [From Coumadin] AdvReac See Verified 08/23/17 07:26 Comments Procedures/tests Complete & Pending: Procedures Performed prior 72 hours Category Date Time Status ECG 12 lead ECG [ECG] Routine Y 08/27/17 11:26 Completed Date of admission: 08/27/17 16:24 Primary care physician: Bharat Méndez DO - Patient Status Disposition: Home, Self-Care Condition: Fair - Discharge Instructions Follow Up With: Bharat Méndez DO [Primary Care Provider] - Hospital course: Patient is a 71-year-old female with past medical history significant for hyperlipidemia, hypertension and end-stage renal disease who presented to the ER on 08/27/17 due to rectal bleeding. She recently underwent colonoscopy and polypectomy on 08-23-2016 at which time she had 3 6 to 15 mm polyps in the sigmoid and ascending colon removed with hot snare. She denied any bleeding following the colonoscopy but reported that bleeding started the day of admission. She is described bright red blood mixed with stool and also present while wiping. Patient decided to come to the hospital for evaluation. During patients hospital stay, general surgery was consulted and was found to have a non-thrombosed external rectal hemorrhoids. There was no evidence of active bleeding per surgical evaluation and patient has been hemodynamically stable during her hospital stay. She will be discharged to follow-up with primary care provider. - Time Spent with Patient Total time spent providing and/or coordinating discharge services: Less than 30 minutes - Constitutional Vitals: Temp Pulse Resp BP Pulse Ox 98.2 F 75 16 93/63 97 08/28/17 10:15 08/28/17 10:15 08/28/17 10:15 08/28/17 10:52 08/28/17 10:15 General appearance: Present: cooperative, A&O X 3, no acute distress, answers questions appropriately - Cardiovascular Cardiovascular exam: Present: RRR, +S1, +S2. Absent: diastolic murmur, gallop, rubs, systolic murmur - GI/Abdominal GI/Abdominal exam: Present: normal bowel sounds, soft, no peritoneal signs. Absent: distended, tenderness - VTE Documentation of Mechanical Device: Graduated compression elastic hosiery
[2017-08-28] MEDS ORDERED: *HR* Heparin 5,000 UNIT/ML VIAL ONE (15:21)
--- NOTE | 2017-08-28 18:39 | Electrocardiograph Report ---
[place] [id number] Test Date: 2017-08-27 Pat Name: Sybil Smallwood Department: 104 Room: 2A71 Gender: F King Maker: : 1945 Requested By: Jimmie Roach Order Number: [id number] Reading MD: Di Hunt Measurements Intervals [employer] Rate: 69 P: 37 ME: 131 QRS: -24 QRSD: 105 T: 69 QT: 423 QTc: 442 Interpretive Statements SINUS RHYTHM BORDERLINE LEFT AXIS DEVIATION LOW QRS VOLTAGE IN PRECORDIAL LEADS PATTERN CONSISTENT WITH PULMONARY DISEASE NONSPECIFIC T-WAVE ABNORMALITY Electronically Signed On 08-28-2017 18:38:13 EST by Di Hunt
== END 2017-08-28 15:39 | disposition home or self-care (01) | DRG 377 ==
LOC: EMEROO 10:01 → 2ANU 10:01 → SUATTDRO 16:24 → 2ANU 16:37
PROVIDERS: ADMIT Student in an Organized Health Care Education/Training Program; ATTEND Hospitalist